=== PATIENT | male | born 1995 | race Caucasian/White ===

== ENCOUNTER 2019-06-07 21:20 | Emergency (ER) | payer OTHER ==
[2019-06-07] MEDS: HYDROCHLOROTHIAZIDE 25 MG TAB PO (22:52)
[2019-06-07] MEDS: ALPRAZOLAM 0.25 MG TAB PO (22:52)
[2019-06-07] MEDS: SOD CHLORIDE 0.9% 1,000 ML IV (22:53)
== END 2019-06-07 23:55 | disposition home or self-care (01) ==
LOC: E/R 21:20
DX: I10 Essential (primary) hypertension (principal); F41.9 Anxiety disorder, unspecified
CPT/HCPCS: 36415; 71045; 80053; 83690; 84484; 85025; 93005; 99284-25